=== PATIENT | female | born 1975 | race American Indian/Alaskan Native ===

== ENCOUNTER 2016-11-05 15:38 | Outpatient (CLI) | payer OTHER ==
--- NOTE | 2016-11-05 16:16 | Cat Scan Report ---
CTA chest: History: Elevated d-dimer. Findings: No evidence of aortic aneurysm or pulmonary embolism. No pleural or pericardial effusion. No mediastinal mass or adenopathy. Normal lung parenchyma. No discrete nodularity or consolidation. Impression: Essentially negative CTA chest.
== END 2016-11-05 15:39 | disposition home or self-care (01) ==
LOC: CT 15:38
PROVIDERS: ATTEND Internal Medicine Cardiovascular Disease
DX: I26.99 Other pulmonary embolism without acute cor pulmonale (principal); R06.00 Dyspnea, unspecified
CPT/HCPCS: 71275; Q9967

== ENCOUNTER 2017-02-06 11:18 | Outpatient (CLI) | payer OTHER ==
[2017-02-06 12:20] LABS: Anion Gap 14 mmol/L; BUN/Creatinine Ratio 15.71; Blood Urea Nitrogen 11 mg/dL (7-17); Calcium 8.7 mg/dL (8.4-10.2); Carbon Dioxide 29 mmol/L (22-30); Chloride 101.1 mmol/L (98-107); Glucose 89 mg/dL (65-100); Potassium 3.6 mmol/L (3.6-5.0); Sodium 140 mmol/L (137-145)
== END 2017-02-06 11:19 | disposition home or self-care (01) ==
LOC: LAB 11:18
PROVIDERS: ATTEND Internal Medicine Cardiovascular Disease
DX: E78.4 Other hyperlipidemia (principal)
CPT/HCPCS: 36415; 80048

== ENCOUNTER 2017-12-15 03:20 | Inpatient (IN) | payer OTHER ==
[2017-12-15 03:54] LABS: Basophils # (Auto) 0.1 K/mm3 (0.0-0.1); Basophils % (Auto) 0.8 % (0.0-1.8); Eosinophils # (Auto) 0.2 K/mm3 (0.0-0.4); Eosinophils % (Auto) 2.7 % (0.0-4.3); Hematocrit 41.7 % (30.3-42.9); Hemoglobin 13.3 gm/dl (10.1-14.3); Lymphocytes # (Auto) 2.8 K/mm3 (1.2-5.4); Lymphocytes % (Auto) 38.7 % (13.4-35.0); Mean Corpuscular HGB Conc 32 % (30-34); Mean Corpuscular Hemoglobin 28 pg (28-32); Mean Corpuscular Volume 87 fl (79-97); Monocytes # (Auto) 0.5 K/mm3 (0.0-0.8); Monocytes % (Auto) 7.6 % (0.0-7.3); Platelet Count 318 K/mm3 (140-440); Red Blood Count 4.79 M/mm3 (3.65-5.03); Red Cell Distribution Width 14.5 % (13.2-15.2)
--- NOTE | 2017-12-15 04:11 | XRay Report ---
FINAL REPORT EXAM: XR CHEST ROUTINE 2V HISTORY: Shortness of breath TECHNIQUE: PA and lateral chest radiographs PRIORS: None. FINDINGS: No mediastinal shift. Cardiac silhouette is not enlarged. Posterior right lower lung opacity. No pneumothorax, effusion, or acute skeletal finding. IMPRESSION: Posterior right lower lung airspace disease.
[2017-12-15 05:06] LABS: BUN/Creatinine Ratio 18; Blood Urea Nitrogen 14 mg/dL (7-17); Calcium 8.8 mg/dL (8.4-10.2); Hemolysis Index 5
[2017-12-15 08:33] LABS: Alanine Aminotransferase 10 units/L (7-56); Albumin 4.1 g/dL (3.9-5); Bilirubin,Direct < 0.2 mg/dL (0-0.2)
[2017-12-15] MEDS ORDERED: LASIX IV ONE ×2 (08:46→08:48)
[2017-12-15] MEDS ORDERED: TESSALON PERLES PO ONE (08:47)
[2017-12-15] MEDS ORDERED: ZOFRAN IV ONE (08:47)
[2017-12-15] MEDS ORDERED: MORPHINE IV ONE (08:47)
[2017-12-15] MEDS ORDERED: K-DUR PO ONE (08:48)
[2017-12-15] MEDS ORDERED: ASPIRIN PO ONE (08:51)
--- NOTE | 2017-12-15 08:55 | Emergency Department Report ---
ED Shortness of Breath HPI - General Chief Complaint: Dyspnea/Respdistress Stated Complaint: CHEST TIGHNESS,SOB Time Seen by Provider: 12/15/17 08:14 Source: patient Mode of arrival: Ambulatory Limitations: No Limitations - History of Present Illness Initial Comments: 42-year-old female with a past medical history of lupus, CHF with last EF of 35 % in past, and obesity presents to the hospital complains of shortness of breath since yesterday 9 AM. Symptoms started rest sitting at work. Notices worsening shortness of breath with exertion, orthopnea, and PND. Some improvement with rest and sleeping sitting straight up in the bed. Patient feels like her abdomen is swollen but denies any edema or calf tenderness. Dry cough since yesterday reported without fever. Patient developed anterior upper chest wall pain since 1 AM. Pain is moderate, constant, worse with palpation and coughing. Patient reports that she had an outpatient echocardiogram performed 1 month ago by her dynamometer tester is Dr. Farr but she does not know the results. She ran out of her Bumex 2 days ago but is taking her carvedilol, potassium, and aspirin 81 mg. - Related Data Allergies Allergy/AdvReac Type Severity Reaction Status Date / Time codeine AdvReac Anaphylaxis Verified 12/15/17 08:49 ED Review of Systems ROS: Stated complaint: CHEST TIGHNESS,SOB Other details as noted in HPI Comment: All other systems reviewed and negative Other: Constitutional: No fevers chills Eyes: No eye pain visual changes ENT: No ear pain or throat pain Neck: Denies pain Respiratory: As per HPI Cardiovascular: Denies chest pain, palpitations, syncope GI: Denies abdominal pain, nausea, vomiting, diarrhea : Denies dysuria Musculoskeletal: Denies back pain Skin: Denies rash, lesions, erythema Neurologic: Denies headache, numbness, weakness Psychiatric: Denies suicidal ideation, hallucinations ED Past Medical Hx - Past Medical History Previous Medical History?: Yes Hx Congestive Heart Failure: Yes Hx Arthritis: Yes Additional medical history: lupus - Surgical History Past Surgical History?: Yes Additional Surgical History: hysterectomy 2014. tubal ligation 1998 - Social History Smoking Status: Never Smoker Substance Use Type: None ED Physical Exam - General Limitations: No Limitations - Other Other exam information: General: No limitations, patient is alert in no acute distress Head exam: Atraumatic, normocephalic Eyes exam: Normal appearance, pupils equal reactive to light, extraocular movements intact ENT: Moist mucous membrane, normal oropharynx Neck exam: Normal inspection, full range of motion, no meningismus nontender Respiratory exam: Diminished breath sounds right base, no rales, mild tachypnea , no accessory muscle use CV: Regular rate and rhythm, mild tenderness to palpation to anterior upper chest wall Abdomen: Soft, nondistended, and nontender, with normal bowel sounds, no rebound, or guarding Extremity: Full range of motion normal inspection no deformity, no calf tenderness or edema Back: Normal Inspection, full range of motion, no tenderness Neurologic: Alert, oriented x3, cranial nerves intact, no motor or sensory deficit Psychiatric: normal affect, normal mood Skin: Warm, dry, intact ED Course Vital Signs 12/15/17 12/15/17 12/15/17 03:36 05:29 05:49 Temperature 97.9 F Pulse Rate 108 H 105 H Respiratory 22 23 18 Rate Blood Pressure 136/90 153/82 Blood Pressure [Left] O2 Sat by Pulse 97 94 97 Oximetry 12/15/17 08:07 Temperature Pulse Rate 94 H Respiratory 16 Rate Blood Pressure Blood Pressure 138/94 [Left] O2 Sat by Pulse 93 Oximetry - Consultations Consultation #1: 12/15/17 08:53 case d/w Inocencia Chow with [facility]. Will consult ED Medical Decision Making - Lab Data Result diagrams: 12/15/17 03:43 12/15/17 03:43 Lab Results 12/15/17 12/15/17 12/15/17 Range/Units 03:43 03:43 03:43 WBC 7.1 (4.5-11.0) K/mm3 RBC 4.79 (3.65-5.03) M/mm3 Hgb 13.3 (10.1-14.3) gm/dl Hct 41.7 (30.3-42.9) % MCV 87 (79-97) fl MCH 28 (28-32) pg MCHC 32 (30-34) % RDW 14.5 (13.2-15.2) % Plt Count 318 (140-440) K/mm3 Lymph % (Auto) 38.7 H (13.4-35.0) % [place] % (Auto) 7.6 H (0.0-7.3) % Eos % (Auto) 2.7 (0.0-4.3) % Baso % (Auto) 0.8 (0.0-1.8) % Lymph # 2.8 (1.2-5.4) K/mm3 [place] # 0.5 (0.0-0.8) K/mm3 Eos # 0.2 (0.0-0.4) K/mm3 Baso # 0.1 (0.0-0.1) K/mm3 Seg Neutrophils % 50.2 (40.0-70.0) % Seg Neutrophils # 3.6 (1.8-7.7) K/mm3 Sodium 139 (137-145) mmol/L Potassium 3.3 L (3.6-5.0) mmol/L Chloride 100.3 (98-107) mmol/L Carbon Dioxide 25 (22-30) mmol/L Anion Gap 17 mmol/L BUN 14 (7-17) mg/dL Creatinine 0.8 (0.7-1.2) mg/dL Estimated GFR > 60 ml/min BUN/Creatinine Ratio 18 % Glucose 90 (65-100) mg/dL Calcium 8.8 (8.4-10.2) mg/dL Total Bilirubin 0.40 (0.1-1.2) mg/dL Direct Bilirubin < 0.2 (0-0.2) mg/dL AST 12 (5-40) units/L ALT 10 (7-56) units/L Alkaline Phosphatase 51 (35-129) units/L Troponin T (0.00-0.029) ng/mL NT-Pro-B Natriuret Pep 1418 H (0-450) pg/mL Total Protein 6.8 (6.3-8.2) g/dL Albumin 4.1 (3.9-5) g/dL Albumin/Globulin Ratio 1.5 % 12/15/17 Range/Units 08:55 WBC (4.5-11.0) K/mm3 RBC (3.65-5.03) M/mm3 Hgb (10.1-14.3) gm/dl Hct (30.3-42.9) % MCV (79-97) fl MCH (28-32) pg MCHC (30-34) % RDW (13.2-15.2) % Plt Count (140-440) K/mm3 Lymph % (Auto) (13.4-35.0) % [place] % (Auto) (0.0-7.3) % Eos % (Auto) (0.0-4.3) % Baso % (Auto) (0.0-1.8) % Lymph # (1.2-5.4) K/mm3 [place] # (0.0-0.8) K/mm3 Eos # (0.0-0.4) K/mm3 Baso # (0.0-0.1) K/mm3 Seg Neutrophils % (40.0-70.0) % Seg Neutrophils # (1.8-7.7) K/mm3 Sodium (137-145) mmol/L Potassium (3.6-5.0) mmol/L Chloride (98-107) mmol/L Carbon Dioxide (22-30) mmol/L Anion Gap mmol/L BUN (7-17) mg/dL Creatinine (0.7-1.2) mg/dL Estimated GFR ml/min BUN/Creatinine Ratio % Glucose (65-100) mg/dL Calcium (8.4-10.2) mg/dL Total Bilirubin (0.1-1.2) mg/dL Direct Bilirubin (0-0.2) mg/dL AST (5-40) units/L ALT (7-56) units/L Alkaline Phosphatase (35-129) units/L Troponin T < 0.010 (0.00-0.029) ng/mL NT-Pro-B Natriuret Pep (0-450) pg/mL Total Protein (6.3-8.2) g/dL Albumin (3.9-5) g/dL Albumin/Globulin Ratio % - EKG Data -: EKG Interpreted by Tx EKG shows normal: sinus rhythm, axis (qrs -33), QRS complexes (87), ST-T waves ( no stemi/t inv) Rate: tachycardia (112) - Radiology Data Radiology results: report reviewed Read by radiologist Chest x-ray: Posterior right lower lung airspace disease - Medical Decision Making Shortness of breath/CHF exacerbation Elevated BNP Noncompliance of Bumex 2 days Right lower lobe opacity likely fluid given clinical picture Positive cough but no fever, leukocytosis to indicate infiltrate Lasix 60 mg IV given Staying Machine Operator consulted and came to ED to evaluate patient Chest pain Reproducible with palpation No STEMI Aspirin given Initial trop neg Hypokalemia By mouth potassium Hospitalist informed informed for admission - Differential Diagnosis CHF, PE, unstable angina, PA, bronchitis, pneumonia Critical Care Time: No Critical care attestation.: If time is entered above; I have spent that time in minutes in the direct care of this critically ill patient, excluding procedure time. ED Disposition Clinical Impression: CHF exacerbation, Chest wall pain, Hypokalemia, Lupus, Noncompliance with medication regimen Disposition: OP ADMIT IP TO THIS HOSP Is pt being admited?: Yes Does the pt Need Aspirin: Yes Condition: Stable Instructions: Chest Pain (ED) Time of Disposition: 08:53 (Dr Martin/hosp)
--- NOTE | 2017-12-15 09:35 | History and Physical Report ---
History of Present Illness Date of examination: 12/15/17 Date of admission: 12/15/17 Chief complaint: sob History of present illness: 42-year-old female with a past medical history of lupus, CHF with last EF of 35 % in past, and obesity presents to the hospital complains of shortness of breath since yesterday 9 AM. Symptoms started rest sitting at work. Notices worsening shortness of breath with exertion, orthopnea, and PND. Pt. reports little LE edema. She reports keeping legs elecvated. Patient feels like her abdomen is swollen but denies any edema or calf tenderness. She reports dry cough since yesterday but no fever. Patient developed anterior upper chest wall pain since 1 AM. Pain is moderate, constant, worse with palpation and coughing. Patient reports that she had an outpatient echocardiogram performed 1 month ago by her forensic toxicologist is Dr. Farr but she does not know the results. She ran out of her Bumex 2 days ago but is taking her carvedilol, potassium, and aspirin 81 mg. Past History Past Medical History: heart failure, other (chf, obesity, lupus) Past Surgical History: No surgical history Social history: no significant social history Family history: no significant family history Medications and Allergies Allergies Allergy/AdvReac Type Severity Reaction Status Date / Time codeine AdvReac Anaphylaxis Verified 12/15/17 08:49 Review of Systems All systems: negative Exam - Constitutional Vitals: Temp Pulse Resp BP Pulse Ox 97.9 F 94 H 16 138/94 93 12/15/17 03:36 12/15/17 08:07 12/15/17 08:07 12/15/17 08:07 12/15/17 08:07 General appearance: Present: no acute distress, well-nourished - EENT Eyes: Present: PERRL ENT: hearing intact, clear oral mucosa - Neck Neck: Present: supple, normal ROM - Respiratory Respiratory effort: normal Respiratory: bilateral: rales - Cardiovascular Heart Sounds: Present: S1 & S2. Absent: rub, click - Extremities Extremities: pulses symmetrical, No edema Peripheral Pulses: within normal limits - Abdominal General gastrointestinal: Present: soft, non-tender, non-distended, normal bowel sounds Female genitourinary: Present: normal - Integumentary Integumentary: Present: clear, warm, dry - Musculoskeletal Musculoskeletal: gait normal, strength equal bilaterally - Psychiatric Psychiatric: appropriate mood/affect, intact judgment & insight - Neurologic Neurologic: CNII-XII intact, moves all extremities Results - Labs CBC & Chem 7: 12/15/17 03:43 12/15/17 03:43 Labs: Laboratory Last Values WBC 7.1 K/mm3 (4.5-11.0) 12/15/17 03:43 RBC 4.79 M/mm3 (3.65-5.03) 12/15/17 03:43 Hgb 13.3 gm/dl (10.1-14.3) 12/15/17 03:43 Hct 41.7 % (30.3-42.9) 12/15/17 03:43 MCV 87 fl (79-97) 12/15/17 03:43 MCH 28 pg (28-32) 12/15/17 03:43 MCHC 32 % (30-34) 12/15/17 03:43 RDW 14.5 % (13.2-15.2) 12/15/17 03:43 Plt Count 318 K/mm3 (140-440) 12/15/17 03:43 Lymph % (Auto) 38.7 % (13.4-35.0) H 12/15/17 03:43 [place] % (Auto) 7.6 % (0.0-7.3) H 12/15/17 03:43 Eos % (Auto) 2.7 % (0.0-4.3) 12/15/17 03:43 Baso % (Auto) 0.8 % (0.0-1.8) 12/15/17 03:43 Lymph # 2.8 K/mm3 (1.2-5.4) 12/15/17 03:43 [place] # 0.5 K/mm3 (0.0-0.8) 12/15/17 03:43 Eos # 0.2 K/mm3 (0.0-0.4) 12/15/17 03:43 Baso # 0.1 K/mm3 (0.0-0.1) 12/15/17 03:43 Seg Neutrophils % 50.2 % (40.0-70.0) 12/15/17 03:43 Seg Neutrophils # 3.6 K/mm3 (1.8-7.7) 12/15/17 03:43 Sodium 139 mmol/L (137-145) 12/15/17 03:43 Potassium 3.3 mmol/L (3.6-5.0) L 12/15/17 03:43 Chloride 100.3 mmol/L (98-107) 12/15/17 03:43 Carbon Dioxide 25 mmol/L (22-30) 12/15/17 03:43 Anion Gap 17 mmol/L 12/15/17 03:43 BUN 14 mg/dL (7-17) 12/15/17 03:43 Creatinine 0.8 mg/dL (0.7-1.2) 12/15/17 03:43 Estimated GFR > 60 ml/min 12/15/17 03:43 BUN/Creatinine Ratio 18 % 12/15/17 03:43 Glucose 90 mg/dL (65-100) 12/15/17 03:43 Calcium 8.8 mg/dL (8.4-10.2) 12/15/17 03:43 Total Bilirubin 0.40 mg/dL (0.1-1.2) 12/15/17 03:43 Direct Bilirubin < 0.2 mg/dL (0-0.2) 12/15/17 03:43 AST 12 units/L (5-40) 12/15/17 03:43 ALT 10 units/L (7-56) 12/15/17 03:43 Alkaline Phosphatase 51 units/L (35-129) 12/15/17 03:43 Troponin T < 0.010 ng/mL (0.00-0.029) 12/15/17 08:55 NT-Pro-B Natriuret Pep 1418 pg/mL (0-450) H 12/15/17 03:43 Total Protein 6.8 g/dL (6.3-8.2) 12/15/17 03:43 Albumin 4.1 g/dL (3.9-5) 12/15/17 03:43 Albumin/Globulin Ratio 1.5 % 12/15/17 03:43 Assessment and Plan Assessment and plan: Acute hypoxemic resp failure. Cont. O2 for supportive care. Acute systolic heart failure exac. Cardiology consulted. Cont. diuresis. SLE. Supportive care. Resume home meds. Medical noncompliance. Pt. counseled. Costochondritis. Reproducible chest wall pain with palpation
[2017-12-15] MEDS ORDERED: ZOFRAN IV PRN (13:17)
--- NOTE | 2017-12-15 13:46 | Consultation ---
History of Present Illness Consult date: 12/15/17 Requesting physician: ULYSSES ELLIOTT Consult reason: congestive heart failure History of present illness: The pt is a 42 YO female with a past medical history significant for chronic systolic heart failure, dilated NICMP, lupus, HLP, obesity, medication noncompliance. She is followed in our office by Dr. Corcoran. She presented with c/o chest pain and progressively worsening SOB, orthopnea and PND for several days prior to arrival. She describes her chest pain as a nonexertional, nonradiating, intermittent precordial pain which is aggravated by palpation. She reports that she ran out of her Bumex and has not taken any for 2 days. She also reports that she was treated for pneumonia in October of this year. She denies any palpitations, n/v, diaphoresis, dizziness or syncope. Echo done 11/05/2017 showed EF 15-20%, mild MR, mild TR, mild AR, LV mod dilated , impaired relaxation, RV size and systolic function normal. LHC 08/2016 showed EF 35-40%, normal coronary anatomy. Past History Past Medical History: heart failure (systolic), hyperlipidemia, other (obesity, lupus) Past Surgical History: No surgical history Social history: no significant social history Family history: no significant family history Medications and Allergies Allergies Allergy/AdvReac Type Severity Reaction Status Date / Time codeine AdvReac Anaphylaxis Verified 12/15/17 08:49 Home Medications Medication Instructions Recorded Confirmed Last Taken Type Aspirin 81 mg PO DAILY 12/15/17 12/15/17 Unknown History Bumetanide 2 mg tab 2 mg PO BID 12/15/17 12/15/17 Unknown History Carvedilol 3.125 mg PO BID 12/15/17 12/15/17 Unknown History Active Meds: Active Medications Acetaminophen (Tylenol) 650 mg PO Q4H PRN PRN Reason: Pain MILD(1-3)/Fever >100.5/JE[facility]TISTE Enoxaparin Sodium (Lovenox) 40 mg SUB-Q QDAY BRANDT Furosemide (Lasix) 40 mg IV QDAY BRANDT Ondansetron HCl (Zofran) 4 mg IV Q8H PRN PRN Reason: Nausea And Vomiting Review of Systems Constitutional: no fever, no chills, no sweats Ears, nose, mouth and throat: no ear pain, no nose pain Cardiovascular: chest pain, orthopnea, shortness of breath, dyspnea on exertion , paroxysmal nocturnal dyspnea, leg edema (trace BLE), decreased exercise tolerance, no palpitations, no rapid/irregular heart beat, no syncope, no lightheadedness Respiratory: cough, no cough with sputum, no congestion, no wheezing, no pain on inspiration Gastrointestinal: no abdominal pain, no nausea, no vomiting, no diarrhea, no constipation, no change in bowel habits Genitourinary Female: no pelvic pain, no flank pain, no dysuria, no urinary frequency, no urgency Musculoskeletal: no neck stiffness, no neck pain, no shooting arm pain, no arm numbness/tingling, no low back pain, no shooting leg pain, no leg numbness/ tingling, no redness of joints Integumentary: no rash, no pruritis, no redness, no sores, no wounds Neurological: no head injury, no paralysis, no weakness, no parathesias, no numbness, no tingling, no seizures, no syncope Psychiatric: no anxiety Endocrine: no cold intolerance, no heat intolerance Hematologic/Lymphatic: no easy bruising, no easy bleeding, no lymphadenopathy Allergic/Immunologic: no urticaria, no wheezing, no persistent infections Physical Examination Vital Signs Temp Pulse Resp BP Pulse Ox 97.9 F 108 H 22 136/90 97 12/15/17 03:36 12/15/17 03:36 12/15/17 03:36 12/15/17 03:36 12/15/17 03:36 General appearance: no acute distress HEENT: Positive: PERRL, Normocephaly, Mucus Membranes Moist Neck: Positive: neck supple, trachea midline Cardiac: Positive: Reg Rate and Rhythm, S1/S2 Lungs: Positive: Decreased Breath Sounds, Rales (right lower) Neuro: Positive: Grossly Intact, Cranial Nerve 2-12 Intact Abdomen: Positive: Soft. Negative: Tender Skin: Positive: Clear. Negative: Rash, Wound Musculoskeletal: No Pain, Normal Range of Motion Extremities: Present: edema (trace BLE) Results 12/15/17 03:43 12/15/17 03:43 Cardiac Enzymes 12/15/17 Range/Units 03:43 AST 12 (5-40) units/L CBC 12/15/17 Range/Units 03:43 WBC 7.1 (4.5-11.0) K/mm3 RBC 4.79 (3.65-5.03) M/mm3 Hgb 13.3 (10.1-14.3) gm/dl Hct 41.7 (30.3-42.9) % Plt Count 318 (140-440) K/mm3 Lymph # 2.8 (1.2-5.4) K/mm3 [place] # 0.5 (0.0-0.8) K/mm3 Eos # 0.2 (0.0-0.4) K/mm3 Baso # 0.1 (0.0-0.1) K/mm3 Comprehensive Metabolic Panel 12/15/17 12/15/17 Range/Units 03:43 03:43 Sodium 139 (137-145) mmol/L Potassium 3.3 L (3.6-5.0) mmol/L Chloride 100.3 (98-107) mmol/L Carbon Dioxide 25 (22-30) mmol/L BUN 14 (7-17) mg/dL Creatinine 0.8 (0.7-1.2) mg/dL Glucose 90 (65-100) mg/dL Calcium 8.8 (8.4-10.2) mg/dL Direct Bilirubin < 0.2 (0-0.2) mg/dL AST 12 (5-40) units/L ALT 10 (7-56) units/L Alkaline Phosphatase 51 (35-129) units/L Total Protein 6.8 (6.3-8.2) g/dL Albumin 4.1 (3.9-5) g/dL - Imaging and Cardiology Echo: report reviewed (11/05/2017 showed EF 15-20%, mild MR, mild TR, mild AR, LV mod dilated, impaired relaxation, RV size and systolic function normal. ) Cardiac cath: report reviewed (08/2016 showed EF 35-40%, normal coronary anatomy. ) EKG: report reviewed, image reviewed EKG interpretations - Telemetry EKG Rhythm: Sinus Rhythm - EKG Sinus rhythms and dysrhythmias: sinus rhythm Assessment and Plan Assessment: Acute on chronic systolic heart failure Dilated NICMP - EF 15-20% Lupus HLP Obesity Medication noncompliance Plan: Resume home Coreg and lisinopril. Agree with IV diuretics. Replete K+. Repeat BMP in AM. No indication for repeat echo at this time given recent echo in our office 2017. Echo results reviewed with pt and cardiac defibrillator recommended. Pt wishes to consider LifeVest placement overnight. Will reassess in AM. Assessment and plan reviewed with pt at bedside. The patient has been seen in conjunction with Dr. Almonte who agrees with the assessment and plan of care.
[2017-12-15] MEDS: TYLENOL PO PRN ×2 (16:54→21:15)
[2017-12-15] MEDS ORDERED: ATIVAN IV ONE (21:04)
[2017-12-15] MEDS: COREG PO SCH (21:15)
[2017-12-16 07:09] LABS: BUN/Creatinine Ratio 17; Blood Urea Nitrogen 15 mg/dL (7-17); Calcium 8.8 mg/dL (8.4-10.2); Hemolysis Index 13
--- NOTE | 2017-12-16 10:52 | Progress Note ---
Assessment and Plan Assessment and plan: Acute hypoxemic resp failure. Cont. O2 for supportive care. Acute on chronic systolic heart failure exac. Dilated NICMP. ECHO on 11/05/17 revealed EF 15-20%, mild MR, mild TR, mild AR, LV mod dilated, impaired relaxation, RV size and systolic function normal. Cont. Coreg, lisinopril and IV diuresis SLE. Supportive care. Resume home meds. hypokalemia. Replete K hyperlipidemia. Medical noncompliance. Pt. counseled. Obesity Costochondritis. Reproducible chest wall pain with palpation History Interval history: no new issues Hospitalist Physical - Constitutional Vitals: Temp Pulse Resp BP Pulse Ox 98.0 F 105 H 20 142/89 99 12/16/17 09:04 12/16/17 09:04 12/16/17 09:04 12/16/17 09:04 12/16/17 09:04 General appearance: Present: no acute distress - EENT Eyes: Present: PERRL, EOM intact ENT: hearing intact, clear oral mucosa, dentition normal - Neck Neck: Present: supple, normal ROM - Respiratory Respiratory effort: normal Respiratory: bilateral: diminished, rales - Cardiovascular Rhythm: regular Heart Sounds: Present: S1 & S2. Absent: gallop, rub - Extremities Extremities: no ischemia, No edema, Full ROM - Abdominal General gastrointestinal: soft, non-tender, non-distended, normal bowel sounds - Integumentary Integumentary: Present: clear, warm, dry - Neurologic Neurologic: CNII-XII intact, moves all extremities Results - Labs CBC & Chem 7: 12/15/17 03:43 12/16/17 06:11 Labs: Laboratory Last Values WBC 7.1 K/mm3 (4.5-11.0) 12/15/17 03:43 RBC 4.79 M/mm3 (3.65-5.03) 12/15/17 03:43 Hgb 13.3 gm/dl (10.1-14.3) 12/15/17 03:43 Hct 41.7 % (30.3-42.9) 12/15/17 03:43 MCV 87 fl (79-97) 12/15/17 03:43 MCH 28 pg (28-32) 12/15/17 03:43 MCHC 32 % (30-34) 12/15/17 03:43 RDW 14.5 % (13.2-15.2) 12/15/17 03:43 Plt Count 318 K/mm3 (140-440) 12/15/17 03:43 Lymph % (Auto) 38.7 % (13.4-35.0) H 12/15/17 03:43 [place] % (Auto) 7.6 % (0.0-7.3) H 12/15/17 03:43 Eos % (Auto) 2.7 % (0.0-4.3) 12/15/17 03:43 Baso % (Auto) 0.8 % (0.0-1.8) 12/15/17 03:43 Lymph # 2.8 K/mm3 (1.2-5.4) 12/15/17 03:43 [place] # 0.5 K/mm3 (0.0-0.8) 12/15/17 03:43 Eos # 0.2 K/mm3 (0.0-0.4) 12/15/17 03:43 Baso # 0.1 K/mm3 (0.0-0.1) 12/15/17 03:43 Seg Neutrophils % 50.2 % (40.0-70.0) 12/15/17 03:43 Seg Neutrophils # 3.6 K/mm3 (1.8-7.7) 12/15/17 03:43 Sodium 137 mmol/L (137-145) 12/16/17 06:11 Potassium 3.2 mmol/L (3.6-5.0) L 12/16/17 06:11 Chloride 98.3 mmol/L (98-107) 12/16/17 06:11 Carbon Dioxide 25 mmol/L (22-30) 12/16/17 06:11 Anion Gap 17 mmol/L 12/16/17 06:11 BUN 15 mg/dL (7-17) 12/16/17 06:11 Creatinine 0.9 mg/dL (0.7-1.2) 12/16/17 06:11 Estimated GFR > 60 ml/min 12/16/17 06:11 BUN/Creatinine Ratio 17 % 12/16/17 06:11 Glucose 95 mg/dL (65-100) 12/16/17 06:11 Calcium 8.8 mg/dL (8.4-10.2) 12/16/17 06:11 Total Bilirubin 0.40 mg/dL (0.1-1.2) 12/15/17 03:43 Direct Bilirubin < 0.2 mg/dL (0-0.2) 12/15/17 03:43 AST 12 units/L (5-40) 12/15/17 03:43 ALT 10 units/L (7-56) 12/15/17 03:43 Alkaline Phosphatase 51 units/L (35-129) 12/15/17 03:43 Troponin T < 0.010 ng/mL (0.00-0.029) 12/15/17 08:55 NT-Pro-B Natriuret Pep 1418 pg/mL (0-450) H 12/15/17 03:43 Total Protein 6.8 g/dL (6.3-8.2) 12/15/17 03:43 Albumin 4.1 g/dL (3.9-5) 12/15/17 03:43 Albumin/Globulin Ratio 1.5 % 12/15/17 03:43
[2017-12-16] MEDS: ZESTRIL PO SCH (10:57)
[2017-12-16] MEDS: COREG PO SCH ×3 (10:58→21:49)
[2017-12-16] MEDS: LASIX IV SCH (10:58)
[2017-12-16] MEDS: LOVENOX SUB-Q SCH (10:58)
[2017-12-16] MEDS ORDERED: K-DUR PO NR (11:30)
--- NOTE | 2017-12-16 12:10 | Progress Note ---
Assessment and Plan Assessment: Acute on chronic systolic heart failure Dilated NICMP - EF 15-20% Hypokalemia Lupus HLP Obesity Medication noncompliance Plan: Increase coreg. Cont all other present cardiac management. Replete K+. Repeat BMP in AM. Pt wishes proceed with LifeVest placement. LifeVest ordered. Assessment and plan reviewed with pt at bedside. The patient has been seen in conjunction with Dr. Almonte who agrees with the assessment and plan of care. Subjective Date of service: 12/16/17 Principal diagnosis: HF Interval history: pt resting in bed, states she is feeling a little better. Objective Last Vital Signs Temp 98.0 F 12/16/17 09:04 Pulse 105 H 12/16/17 10:58 Resp 20 12/16/17 09:04 BP 142/89 12/16/17 10:57 Pulse Ox 99 12/16/17 09:04 - Physical Examination HEENT: Positive: PERRL, Normocephaly, Mucus Membranes Moist Neck: Positive: neck supple, trachea midline Cardiac: Positive: Reg Rate and Rhythm, S1/S2 Lungs: Positive: Decreased Breath Sounds Neuro: Positive: Grossly Intact, Cranial Nerve 2-12 Intact Abdomen: Positive: Soft. Negative: Tender Skin: Positive: Clear. Negative: Rash, Wound Musculoskeletal: No Pain, Normal Range of Motion Extremities: Present: edema (trace BLE) - Labs and Meds Comprehensive Metabolic Panel 12/16/17 Range/Units 06:11 Sodium 137 (137-145) mmol/L Potassium 3.2 L (3.6-5.0) mmol/L Chloride 98.3 (98-107) mmol/L Carbon Dioxide 25 (22-30) mmol/L BUN 15 (7-17) mg/dL Creatinine 0.9 (0.7-1.2) mg/dL Glucose 95 (65-100) mg/dL Calcium 8.8 (8.4-10.2) mg/dL - Imaging and Cardiology EKG: report reviewed, image reviewed Echo: report reviewed (11/05/2017 showed EF 15-20%, mild MR, mild TR, mild AR, LV mod dilated, impaired relaxation, RV size and systolic function normal. ) Cardiac cath: report reviewed (08/2016 showed EF 35-40%, normal coronary anatomy. ) - EKG Sinus rhythms and dysrhythmias: sinus rhythm
[2017-12-16] MEDS: TYLENOL PO PRN (19:57)
[2017-12-16] MEDS ORDERED: AMBIEN PO ONE (23:00)
[2017-12-17 06:55] LABS: Basophils # (Auto) 0.1 K/mm3 (0.0-0.1); Eosinophils # (Auto) 0.2 K/mm3 (0.0-0.4); Eosinophils % (Auto) 4.1 % (0.0-4.3); Hematocrit 38.9 % (30.3-42.9); Hemoglobin 12.6 gm/dl (10.1-14.3); Lymphocytes # (Auto) 2.2 K/mm3 (1.2-5.4); Lymphocytes % (Auto) 39.6 % (13.4-35.0); Mean Corpuscular HGB Conc 32 % (30-34); Mean Corpuscular Hemoglobin 28 pg (28-32); Mean Corpuscular Volume 87 fl (79-97); Monocytes # (Auto) 0.6 K/mm3 (0.0-0.8); Monocytes % (Auto) 10.9 % (0.0-7.3); Platelet Count 270 K/mm3 (140-440); Red Blood Count 4.46 M/mm3 (3.65-5.03)
[2017-12-17 07:03] LABS: BUN/Creatinine Ratio 21; Blood Urea Nitrogen 17 mg/dL (7-17); Calcium 8.4 mg/dL (8.4-10.2); Hemolysis Index 10
[2017-12-17] MEDS: COREG PO SCH ×2 (10:28→21:20)
[2017-12-17] MEDS: LOVENOX SUB-Q SCH (10:29)
[2017-12-17] MEDS: LASIX IV SCH (10:29)
[2017-12-17] MEDS: ZESTRIL PO SCH (10:30)
--- NOTE | 2017-12-17 11:11 | Progress Note ---
Assessment and Plan Assessment and plan: Acute hypoxemic resp failure. Cont. O2 for supportive care. Acute on chronic systolic heart failure exac. Dilated NICMP. ECHO on 11/05/17 revealed EF 15-20%, mild MR, mild TR, mild AR, LV mod dilated, impaired relaxation, RV size and systolic function normal. Cont. Coreg which was increased by cardiology, lisinopril and IV diuresis Dilated NICMP. LifeVest placement SLE. Supportive care. Resume home meds. hypokalemia. Replete K hyperlipidemia. Medical noncompliance. Pt. counseled. Obesity Costochondritis. Reproducible chest wall pain with palpation History Interval history: no new issues Hospitalist Physical - Constitutional Vitals: Temp Pulse Resp BP Pulse Ox 98.4 F 94 H 18 123/66 99 12/17/17 07:30 12/17/17 07:30 12/17/17 07:30 12/17/17 07:30 12/17/17 07:30 General appearance: Present: no acute distress - EENT Eyes: Present: PERRL, EOM intact ENT: hearing intact, clear oral mucosa, dentition normal - Neck Neck: Present: supple, normal ROM - Respiratory Respiratory effort: normal Respiratory: bilateral: CTA - Cardiovascular Rhythm: regular Heart Sounds: Present: S1 & S2. Absent: gallop, rub - Extremities Extremities: no ischemia, No edema, Full ROM - Abdominal General gastrointestinal: soft, non-tender, non-distended, normal bowel sounds - Integumentary Integumentary: Present: clear, warm, dry - Neurologic Neurologic: CNII-XII intact, moves all extremities Results - Labs CBC & Chem 7: 12/17/17 05:38 12/17/17 05:38 Labs: Laboratory Last Values WBC 5.6 K/mm3 (4.5-11.0) 12/17/17 05:38 RBC 4.46 M/mm3 (3.65-5.03) 12/17/17 05:38 Hgb 12.6 gm/dl (10.1-14.3) 12/17/17 05:38 Hct 38.9 % (30.3-42.9) 12/17/17 05:38 MCV 87 fl (79-97) 12/17/17 05:38 MCH 28 pg (28-32) 12/17/17 05:38 MCHC 32 % (30-34) 12/17/17 05:38 RDW 15.0 % (13.2-15.2) 12/17/17 05:38 Plt Count 270 K/mm3 (140-440) 12/17/17 05:38 Lymph % (Auto) 39.6 % (13.4-35.0) H 12/17/17 05:38 [place] % (Auto) 10.9 % (0.0-7.3) H 12/17/17 05:38 Eos % (Auto) 4.1 % (0.0-4.3) 12/17/17 05:38 Baso % (Auto) 1.0 % (0.0-1.8) 12/17/17 05:38 Lymph # 2.2 K/mm3 (1.2-5.4) 12/17/17 05:38 [place] # 0.6 K/mm3 (0.0-0.8) 12/17/17 05:38 Eos # 0.2 K/mm3 (0.0-0.4) 12/17/17 05:38 Baso # 0.1 K/mm3 (0.0-0.1) 12/17/17 05:38 Seg Neutrophils % 44.4 % (40.0-70.0) 12/17/17 05:38 Seg Neutrophils # 2.5 K/mm3 (1.8-7.7) 12/17/17 05:38 Sodium 140 mmol/L (137-145) 12/17/17 05:38 Potassium 3.5 mmol/L (3.6-5.0) L 12/17/17 05:38 Chloride 98.7 mmol/L (98-107) 12/17/17 05:38 Carbon Dioxide 26 mmol/L (22-30) 12/17/17 05:38 Anion Gap 19 mmol/L 12/17/17 05:38 BUN 17 mg/dL (7-17) 12/17/17 05:38 Creatinine 0.8 mg/dL (0.7-1.2) 12/17/17 05:38 Estimated GFR > 60 ml/min 12/17/17 05:38 BUN/Creatinine Ratio 21 % 12/17/17 05:38 Glucose 81 mg/dL (65-100) 12/17/17 05:38 Calcium 8.4 mg/dL (8.4-10.2) 12/17/17 05:38 Total Bilirubin 0.40 mg/dL (0.1-1.2) 12/15/17 03:43 Direct Bilirubin < 0.2 mg/dL (0-0.2) 12/15/17 03:43 AST 12 units/L (5-40) 12/15/17 03:43 ALT 10 units/L (7-56) 12/15/17 03:43 Alkaline Phosphatase 51 units/L (35-129) 12/15/17 03:43 Troponin T < 0.010 ng/mL (0.00-0.029) 12/15/17 08:55 NT-Pro-B Natriuret Pep 1418 pg/mL (0-450) H 12/15/17 03:43 Total Protein 6.8 g/dL (6.3-8.2) 12/15/17 03:43 Albumin 4.1 g/dL (3.9-5) 12/15/17 03:43 Albumin/Globulin Ratio 1.5 % 12/15/17 03:43
--- NOTE | 2017-12-17 12:10 | Progress Note ---
Assessment and Plan Assessment: Acute on chronic systolic heart failure - nearing/at euvolemia Dilated NICMP - EF 15-20% Hypokalemia Lupus HLP NSVT Obesity Medication noncompliance Plan: Continue present cardiac regimen. Repeat CXR and BMP in AM. Await LifeVest placement. Likely d/c home in AM. Assessment and plan reviewed with pt at bedside. The patient has been seen in conjunction with Dr. Almonte who agrees with the assessment and plan of care. Subjective Date of service: 12/17/17 Principal diagnosis: HF Interval history: pt resting in bed, still c/o some BRYAN. Awaiting LifeVest placement. Tele reviewed - pt in SR with a 13 beat run NSVT overnight. Objective Last Vital Signs Temp 98.4 F 12/17/17 07:30 Pulse 94 H 12/17/17 10:30 Resp 18 12/17/17 07:30 BP 123/66 12/17/17 10:28 Pulse Ox 99 12/17/17 07:30 - Physical Examination General: No Apparent Distress HEENT: Positive: PERRL, Normocephaly, Mucus Membranes Moist Neck: Positive: neck supple, trachea midline Cardiac: Positive: Reg Rate and Rhythm, S1/S2 Lungs: Positive: clear to auscultation Neuro: Positive: Grossly Intact, Cranial Nerve 2-12 Intact Abdomen: Positive: Soft. Negative: Tender Skin: Positive: Clear. Negative: Rash, Wound Musculoskeletal: No Pain, Normal Range of Motion Extremities: Present: edema (trace BLE) - Labs and Meds CBC 12/17/17 Range/Units 05:38 WBC 5.6 (4.5-11.0) K/mm3 RBC 4.46 (3.65-5.03) M/mm3 Hgb 12.6 (10.1-14.3) gm/dl Hct 38.9 (30.3-42.9) % Plt Count 270 (140-440) K/mm3 Lymph # 2.2 (1.2-5.4) K/mm3 [place] # 0.6 (0.0-0.8) K/mm3 Eos # 0.2 (0.0-0.4) K/mm3 Baso # 0.1 (0.0-0.1) K/mm3 Comprehensive Metabolic Panel 12/17/17 Range/Units 05:38 Sodium 140 (137-145) mmol/L Potassium 3.5 L (3.6-5.0) mmol/L Chloride 98.7 (98-107) mmol/L Carbon Dioxide 26 (22-30) mmol/L BUN 17 (7-17) mg/dL Creatinine 0.8 (0.7-1.2) mg/dL Glucose 81 (65-100) mg/dL Calcium 8.4 (8.4-10.2) mg/dL - Imaging and Cardiology EKG: report reviewed, image reviewed Echo: report reviewed (11/05/2017 showed EF 15-20%, mild MR, mild TR, mild AR, LV mod dilated, impaired relaxation, RV size and systolic function normal. ) Cardiac cath: report reviewed (08/2016 showed EF 35-40%, normal coronary anatomy. ) - Telemetry EKG Rhythm: Sinus Rhythm - EKG Sinus rhythms and dysrhythmias: sinus rhythm
[2017-12-17] MEDS ORDERED: AMBIEN PO ONE (23:00)
[2017-12-18 06:20] LABS: Basophils # (Auto) 0.1 K/mm3 (0.0-0.1); Basophils % (Auto) 1.1 % (0.0-1.8); Eosinophils # (Auto) 0.2 K/mm3 (0.0-0.4); Eosinophils % (Auto) 3.6 % (0.0-4.3); Hematocrit 39.7 % (30.3-42.9); Hemoglobin 12.4 gm/dl (10.1-14.3); Lymphocytes # (Auto) 2.1 K/mm3 (1.2-5.4); Lymphocytes % (Auto) 35.9 % (13.4-35.0); Mean Corpuscular HGB Conc 31 % (30-34); Mean Corpuscular Hemoglobin 28 pg (28-32); Mean Corpuscular Volume 88 fl (79-97); Monocytes # (Auto) 0.8 K/mm3 (0.0-0.8); Monocytes % (Auto) 13.3 % (0.0-7.3); Platelet Count 278 K/mm3 (140-440); Red Blood Count 4.49 M/mm3 (3.65-5.03); Red Cell Distribution Width 14.7 % (13.2-15.2)
[2017-12-18 06:34] LABS: BUN/Creatinine Ratio 17; Blood Urea Nitrogen 17 mg/dL (7-17); Calcium 8.8 mg/dL (8.4-10.2); Hemolysis Index 8
--- NOTE | 2017-12-18 09:10 | XRay Report ---
PORTABLE CHEST INDICATION: HF. COMPARISON: 12/15/2017 FINDINGS: Portable, frontal chest radiograph suggests slight clearing of bibasilar haziness, though some still persists as at the left lung base. Mild cardiomegaly again noted. No large pleural effusions or overt CHF. Intact bones. CONCLUSION: Cardiomegaly again noted with slight pulmonary vascular congestion felt improving radiographically, as described. Please correlate. Thank you for the opportunity to participate in this patient's care.
[2017-12-18] MEDS: COREG PO SCH (10:52)
[2017-12-18] MEDS: ZESTRIL PO SCH (10:52)
[2017-12-18] MEDS: LOVENOX SUB-Q SCH (10:53)
[2017-12-18] MEDS: LASIX IV SCH (10:53)
--- NOTE | 2017-12-18 11:04 | Progress Note ---
Assessment and Plan Assessment: Acute on chronic systolic heart failure - nearing/at euvolemia Dilated NICMP - EF 15-20% Hypokalemia - improved Lupus HLP NSVT Obesity Medication noncompliance Plan: Currently stable cardiac status. LifeVest in place. Pt may discharge home from cardiology standpoint. At discharge, recommend conversion of IV lasix to home PO Bumex 2mg BID. Continue Coreg 6.25mg PO BID and lisinopril 5mg daily. Follow up in our [place] office with Delphine Smith NP, on 12/23/2016 @ 1:30PM. Assessment and plan reviewed with pt at bedside. The patient has been seen in conjunction with Dr. Almonte who agrees with the assessment and plan of care. Subjective Date of service: 12/18/17 Principal diagnosis: HF Interval history: pt resting in bed, c/o cough. LifeVest in place. Family at bedside. Objective Last Vital Signs Temp 98.4 F 12/18/17 08:21 Pulse 10 L 12/18/17 10:52 Resp 20 12/18/17 08:21 BP 118/69 12/18/17 08:21 Pulse Ox 100 12/18/17 08:21 - Physical Examination General: No Apparent Distress HEENT: Positive: PERRL, Normocephaly, Mucus Membranes Moist Neck: Positive: neck supple, trachea midline Cardiac: Positive: Reg Rate and Rhythm, S1/S2 Lungs: Positive: clear to auscultation Neuro: Positive: Grossly Intact, Cranial Nerve 2-12 Intact Abdomen: Positive: Soft. Negative: Tender Skin: Positive: Clear. Negative: Rash, Wound Musculoskeletal: No Pain, Normal Range of Motion Extremities: Present: edema (trace BLE) - Labs and Meds CBC 12/18/17 Range/Units 05:51 WBC 5.9 (4.5-11.0) K/mm3 RBC 4.49 (3.65-5.03) M/mm3 Hgb 12.4 (10.1-14.3) gm/dl Hct 39.7 (30.3-42.9) % Plt Count 278 (140-440) K/mm3 Lymph # 2.1 (1.2-5.4) K/mm3 [place] # 0.8 (0.0-0.8) K/mm3 Eos # 0.2 (0.0-0.4) K/mm3 Baso # 0.1 (0.0-0.1) K/mm3 Comprehensive Metabolic Panel 12/18/17 Range/Units 05:51 Sodium 142 (137-145) mmol/L Potassium 3.6 (3.6-5.0) mmol/L Chloride 100.1 (98-107) mmol/L Carbon Dioxide 29 (22-30) mmol/L BUN 17 (7-17) mg/dL Creatinine 1.0 (0.7-1.2) mg/dL Glucose 89 (65-100) mg/dL Calcium 8.8 (8.4-10.2) mg/dL - Imaging and Cardiology EKG: report reviewed, image reviewed Echo: report reviewed (11/05/2017 showed EF 15-20%, mild MR, mild TR, mild AR, LV mod dilated, impaired relaxation, RV size and systolic function normal. ) Cardiac cath: report reviewed (08/2016 showed EF 35-40%, normal coronary anatomy. ) - Telemetry EKG Rhythm: Sinus Rhythm - EKG Sinus rhythms and dysrhythmias: sinus rhythm
[2017-12-18 12:51] VITALS: BP 102/66
--- NOTE | 2017-12-18 13:57 | Discharge Summary ---
Providers - Providers Date of Admission: 12/15/17 08:55 Date of discharge: 12/18/17 Attending physician: JOHAN BRAVO 12/15/17 08:54 Consult to Physician [CONS] Urgent Consulting Provider: CESAR YOUNGBLOOD Reason For Exam: chf exacerbation, med noncompliance Place consult to:: CARDIO Notified:: y Primary care physician: DOUGH MAKER Hospitalization Reason for admission: sob Condition: Stable Hospital course: The pt is a 42 YO female with a past medical history significant for chronic systolic heart failure, dilated NICMP, lupus, HLP, obesity, medication noncompliance who presented with c/o chest pain and progressively worsening SOB , orthopnea and PND for several days prior to admission. On exam, patient was noted to have reproducible chest wall pain with palpation. Echo done 11/05/2017 showed EF 15-20%, mild MR, mild TR, mild AR, LV mod dilated, impaired relaxation , RV size and systolic function normal. LHC 08/2016 showed EF 35-40%, normal coronary anatomy. The patient was seen by cardiology in consultation and had her Coreg increased and received IV diuresis. The patient also had discussions with cardiology with regards to life vest placement. The patient became euvolemic with appropriate therapy and was felt to receive maximal hospital benefit of discharge. Dedicated discharge time 35 minutes. Disposition: - TO HOME OR SELFCARE Time spent for discharge: 35 - Discharge Diagnoses (1) Costochondritis Status: Acute (2) CHF exacerbation Status: Acute (3) Chest wall pain Status: Acute (4) Lupus Status: Acute (5) Noncompliance with medication regimen Status: Acute Core Measure Documentation - Palliative Care Palliative Care/ Comfort Measures: Not Applicable - Core Measures Any of the following diagnoses?: none Exam - Constitutional Vitals: Temp Pulse Resp BP Pulse Ox 98.0 F 89 20 102/66 96 12/18/17 12:30 12/18/17 12:30 12/18/17 12:30 12/18/17 12:30 12/18/17 12:30 General appearance: Present: no acute distress, well-nourished - EENT Eyes: Present: PERRL ENT: hearing intact, clear oral mucosa - Neck Neck: Present: supple, normal ROM - Respiratory Respiratory effort: normal Respiratory: bilateral: CTA - Cardiovascular Heart Sounds: Present: S1 & S2. Absent: rub, click - Extremities Extremities: pulses symmetrical, No edema Peripheral Pulses: within normal limits - Abdominal General gastrointestinal: Present: soft, non-tender, non-distended, normal bowel sounds Female genitourinary: Present: normal - Integumentary Integumentary: Present: clear, warm, dry - Musculoskeletal Musculoskeletal: strength equal bilaterally, other (chest wall tenderness) - Psychiatric Psychiatric: appropriate mood/affect, intact judgment & insight - Neurologic Neurologic: CNII-XII intact, moves all extremities Plan Activity: no restrictions Weight Bearing Status: Full Weight Bearing Diet: low fat, low cholesterol, low salt Follow up with: PRIMARY CARE,MD [Primary Care Provider] - 7 Days SHELDON CÁRDENAS NP [Advanced Practice Nurse] - 7 Days Prescriptions: Aspirin 81 mg PO DAILY #30 Bumetanide 2 mg tab 2 mg PO BID #60 Carvedilol [Coreg] 6.25 mg PO BID #60 tablet Lisinopril [Zestril TAB] 5 mg PO QDAY #30 tablet
== END 2017-12-18 16:40 | disposition home or self-care (01) | DRG 291 ==
LOC: ED 03:20 → 4A 08:55
PROVIDERS: ADMIT Hospitalist; ATTEND Hospitalist
DX: I50.23 Acute on chronic systolic (congestive) heart failure (principal); J96.01 Acute respiratory failure with hypoxia; I42.0 Dilated cardiomyopathy; L93.0 Discoid lupus erythematosus; Z91.14 Patient's other noncompliance with medication regimen; E87.6 Hypokalemia; Z88.6 Allergy status to analgesic agent; Z90.710 Acquired absence of both cervix and uterus; Z98.51 Tubal ligation status; E66.9 Obesity, unspecified; Z68.34 Body mass index [BMI] 34.0-34.9, adult; M94.0 Chondrocostal junction syndrome [Tietze]
CPT/HCPCS: 36415; 71045; 71046; 80048; 80074; 83880; 84484; 85025; 93005; 93010; 96374; 96375; 96376; J1650; J1940; J2060; J2270; J2405

== ENCOUNTER 2019-04-05 14:14 | Emergency (ER) | payer OTHER ==
--- NOTE | 2019-04-05 14:22 | Event Note ---
ED Screening Note ED Screening Note: sharp cp thought anxiety took xanax got worse and tight pmh gerd anxiety rx prn xanax nexium This initial assessment/diagnostic orders/clinical plan/treatment(s) is/are subject to change based on patients health status, clinical progression and re- assessment by fellow clinical providers in the ED. Further treatment and workup at subsequent clinical providers discretion. Patient/guardian urged not to elope from the ED as their condition may be serious if not clinically assessed and managed. Initial orders include:
[2019-04-05 14:50] LABS: Basophils % (Auto) 0.5 % (0.0-1.8); Eosinophils # (Auto) 0.2 K/mm3 (0.0-0.4); Eosinophils % (Auto) 2.9 % (0.0-4.3); Hemoglobin 12.9 gm/dl (10.1-14.3); Lymphocytes # (Auto) 2.4 K/mm3 (1.2-5.4); Lymphocytes % (Auto) 36.2 % (13.4-35.0); Mean Corpuscular HGB Conc 33 % (30-34); Mean Corpuscular Volume 89 fl (79-97); Monocytes # (Auto) 0.4 K/mm3 (0.0-0.8); Monocytes % (Auto) 6.6 % (0.0-7.3); Platelet Count 276 K/mm3 (140-440); Red Blood Count 4.39 M/mm3 (3.65-5.03); Red Cell Distribution Width 14.3 % (13.2-15.2)
--- NOTE | 2019-04-05 15:06 | XRay Report ---
ROUTINE CHEST, TWO VIEWS: HISTORY: Dysrhythmia. A single-lead pacemaker device has been inserted since 12/18/17. Borderline to mild cardiomegaly is suspected. Normal pulmonary vascularity. Trace left pleural effusion is identified. Otherwise, the lungs are clear. The bony structures are intact. IMPRESSION: Borderline to mild cardiomegaly. Trace left pleural effusion.
[2019-04-05 15:13] LABS: Alanine Aminotransferase 9 units/L (7-56); Albumin 4.1 g/dL (3.9-5); BUN/Creatinine Ratio 14; Blood Urea Nitrogen 11 mg/dL (7-17); Calcium 9.6 mg/dL (8.4-10.2); Hemolysis Index 10
[2019-04-05 15:15] LABS: Bilirubin,Direct < 0.2 mg/dL (0-0.2)
[2019-04-05] MEDS ORDERED: K-DUR PO ONE (15:46)
--- NOTE | 2019-04-05 15:46 | Emergency Department Report ---
ED General Adult HPI - General Chief complaint: Arrhythmia/Palpitations Stated complaint: CHEST PAIN Time Seen by Provider: 04/05/19 14:21 Source: patient, RN notes reviewed, old records reviewed Mode of arrival: Ambulatory Limitations: No Limitations - History of Present Illness Initial comments: Primary care Dr.: Was Dr. Estrella Kumar, now currently does not have a primary care doctor. Cardiology: Dr. Kari Bassett Past medical history: Chronic systolic heart failure, dilated nonischemic cardiomyopathy, lupus, high cholesterol, obesity, medication noncompliance, reported [place] [employer] defibrillator, left heart cath in August 2016 showed ejection fraction 35-40%, with normal coronary anatomy. Patient has been ruled out for pulmonary embolus at this hospital in the past. This is a pleasant 43-year-old female who is not known to this provider previously. Patient reports she was in her usual state of health today, when she felt like her defibrillator fired, at approximately 1:20 PM. She had some pain associated with the activation, otherwise, had no preceding symptoms. Prior to the event, denies headache, neck pain, chest pain, abdominal pain, shortness of breath, urinary symptoms. Reports a distant history of hysterectomy, not taking any oral contraceptives, and she denies DVT, pulmonary embolus risk factors. Describes a nagging cough for the past few weeks, and indicates that her is being treated for "pneumonia." She endorses sporadic compliance with her medications, and reports being out of her lisinopril, 5 mg, and Bumex, 2 mg, twice daily for a few weeks to 2 months. She currently denies other complaints and pain, with the exception of anxiety. -: Sudden Consistency: now resolved Improves with: none Worsens with: none - Related Data Previous Rx's Medication Instructions Recorded Last Taken Type Aspirin 81 mg PO DAILY #30 12/18/17 Unknown Rx Carvedilol [Coreg] 6.25 mg PO BID #60 tablet 12/18/17 Unknown Rx Bumetanide 2 mg tab 2 mg PO BID #60 04/05/19 Unknown Rx Lisinopril [Zestril TAB] 5 mg PO QDAY #30 tablet 04/05/19 Unknown Rx Potassium Chloride [K-Dur] 20 meq PO QDAY #7 tablet 04/05/19 Unknown Rx Allergies Allergy/AdvReac Type Severity Reaction Status Date / Time codeine AdvReac Anaphylaxis Verified 12/15/17 08:49 ED Review of Systems ROS: Stated complaint: CHEST PAIN Other details as noted in HPI Constitutional: denies: fever Eyes: denies: eye discharge ENT: denies: epistaxis Respiratory: cough Cardiovascular: palpitations, other Gastrointestinal: nausea. denies: vomiting Genitourinary: denies: dysuria Musculoskeletal: denies: arthralgia, myalgia Skin: denies: lesions Neurological: denies: weakness Psychiatric: anxiety ED Past Medical Hx - Past Medical History Previous Medical History?: Yes Hx Congestive Heart Failure: Yes Hx Diabetes: No Hx Arthritis: Yes Hx Asthma: No Additional medical history: lupus - Surgical History Past Surgical History?: Yes Additional Surgical History: hysterectomy 2014. tubal ligation 1998 - Social History Smoking Status: Never Smoker - Medications Home Medications: Home Medications Medication Instructions Recorded Confirmed Last Taken Type Aspirin 81 mg PO DAILY #30 12/18/17 04/05/19 Unknown Rx Carvedilol [Coreg] 6.25 mg PO BID #60 tablet 12/18/17 04/05/19 Unknown Rx Bumetanide 2 mg tab 2 mg PO BID #60 04/05/19 Unknown Rx Lisinopril [Zestril TAB] 5 mg PO QDAY #30 tablet 04/05/19 Unknown Rx Potassium Chloride [K-Dur] 20 meq PO QDAY #7 tablet 04/05/19 Unknown Rx ED Physical Exam - General Limitations: No Limitations General appearance: alert, anxious, obese - Head Head exam: Present: atraumatic, normocephalic - Eye Eye exam: Present: normal appearance, EOMI - ENT ENT exam: Present: normal exam, normal orophraynx, mucous membranes moist, normal external ear exam - Neck Neck exam: Present: normal inspection, full ROM. Absent: tenderness, meningismus - Respiratory Respiratory exam: Present: normal lung sounds bilaterally. Absent: respiratory distress - Cardiovascular Cardiovascular Exam: Present: regular rate, normal rhythm, normal heart sounds. Absent: bradycardia, tachycardia, irregular rhythm, systolic murmur, diastolic murmur, rubs, gallop - GI/Abdominal GI/Abdominal exam: Present: soft. Absent: distended, tenderness, guarding, rebound, rigid, pulsatile mass - Extremities Exam Extremities exam: Present: normal inspection, full ROM, other (2+ pulses noted in the bilateral upper, lower extremities. Compartments soft. No long bony tenderness. The pelvis is stable.). Absent: pedal edema, joint swelling, calf tenderness - Back Exam Back exam: Present: normal inspection, full ROM. Absent: tenderness, CVA tenderness (L), paraspinal tenderness, vertebral tenderness - Neurological Exam Neurological exam: Present: alert, oriented X3, other (Extraocular movements intact. Tongue midline. No facial droop. Facial sensation intact to light touch in the V1, V2, V3 distribution bilaterally. 5 and 5 strength in 4 extremities.. Sensation is intact to light touch in 4 extremities.). Absent: motor sensory deficit - Psychiatric Psychiatric exam: Present: normal affect, normal mood - Skin Skin exam: Present: warm, dry, intact, normal color. Absent: rash ED Course Vital Signs 04/05/19 04/05/19 04/05/19 15:52 16:01 16:15 Temperature 98.3 F Pulse Rate 85 83 80 Respiratory 13 12 16 Rate Blood Pressure 134/62 142/82 Blood Pressure 150/76 [Left] O2 Sat by Pulse 98 99 Oximetry 04/05/19 04/05/19 04/05/19 16:30 16:45 17:01 Temperature Pulse Rate 83 Respiratory 17 Rate Blood Pressure 137/85 142/82 142/82 Blood Pressure [Left] O2 Sat by Pulse 99 99 97 Oximetry 04/05/19 04/05/19 17:08 18:11 Temperature 98.5 F Pulse Rate 85 Respiratory 16 16 Rate Blood Pressure Blood Pressure 133/72 [Left] O2 Sat by Pulse 99 99 Oximetry - Reevaluation(s) Reevaluation #1: 04/05/19 15:57 Differential diagnosis, including not limited to: Arrhythmia, rhonchi his, pleural effusion, electrolyte derangement Assessment and plan: 43-year-old female with ICD in situ, currently pain-free at this time, no pulmonary embolus or DVT risk factors, low risk by well's criteria, perc negative, low risk by heart score, low risk by SAYR score for major adverse cardiac event, with complaint of defibrillator activation. She is currently in normal sinus rhythm, and her EKG today is unchanged from prior EK G. Contacted cardiology farm labor contractor, Roddy Ventura, who recommended having device interrogated. Magnesium within normal limits, patient found to be mildly hypokalemic, we will replete potassium. Patient will be placed on a awake overnight monitor and observed. Awaiting for the [employer] patient financial representative to call back. 04/05/19 16:05 Reevaluation #2: 04/05/19 16:05 [place] [employer] patient financial representative has called back, their representatives and route, they anticipate arrival within an hour. Patient is updated. Reevaluation #3: 04/05/19 17:57 Patient playing on a cellular phone. Vital signs remained stable. Patient in no acute distress. Still awaiting patient financial representative for device interrogation. Reevaluation #4: 04/05/19 18:17 Device interrogation complete. Patient had single episode of ventricular fibrillation, shocked at 41 J, and is now back in normal sinus rhythm. Patient resting comfortably for hours without clinical decompensation. 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 Reevaluation #5: 04/05/19 18:54 Patient resting comfortably for hours, and in no acute distress. Covering cardiology, Dr. Zac Harrison, calls back. I have discussed the patient's history, physical, laboratory findings, prior cardiac risk medications, as well as the findings of the patient's device interrogation. We both agree the patient is medically suitable to be discharged to closely follow up with outpatient cardiology. We will refill the patient's Bumex, and lisinopril, and the patient is instructed to follow-up with her outpatient paint trimmer pipe bowls within the next 5 days. She verbalizes understanding, and she is agreeable to discharge ED Medical Decision Making - Lab Data Result diagrams: 04/05/19 14:41 04/05/19 14:41 Vital Signs 04/05/19 15:52 Temperature 98.3 F Pulse Rate 85 Respiratory 13 Rate Blood Pressure 150/76 [Left] O2 Sat by Pulse 98 Oximetry Lab Results 04/05/19 04/05/19 04/05/19 Range/Units 14:41 14:41 14:41 WBC 6.5 (4.5-11.0) K/mm3 RBC 4.39 (3.65-5.03) M/mm3 Hgb 12.9 (10.1-14.3) gm/dl Hct 39.0 (30.3-42.9) % MCV 89 (79-97) fl MCH 29 (28-32) pg MCHC 33 (30-34) % RDW 14.3 (13.2-15.2) % Plt Count 276 (140-440) K/mm3 Lymph % (Auto) 36.2 H (13.4-35.0) % [place] % (Auto) 6.6 (0.0-7.3) % Eos % (Auto) 2.9 (0.0-4.3) % Baso % (Auto) 0.5 (0.0-1.8) % Lymph # 2.4 (1.2-5.4) K/mm3 [place] # 0.4 (0.0-0.8) K/mm3 Eos # 0.2 (0.0-0.4) K/mm3 Baso # 0.0 (0.0-0.1) K/mm3 Seg Neutrophils % 53.8 (40.0-70.0) % Seg Neutrophils # 3.5 (1.8-7.7) K/mm3 Sodium 141 (137-145) mmol/L Potassium 3.4 L (3.6-5.0) mmol/L Chloride 102.2 (98-107) mmol/L Carbon Dioxide 23 (22-30) mmol/L Anion Gap 19 mmol/L BUN 11 (7-17) mg/dL Creatinine 0.8 (0.7-1.2) mg/dL Estimated GFR > 60 ml/min BUN/Creatinine Ratio 14 % Glucose 107 H (65-100) mg/dL Calcium 9.6 (8.4-10.2) mg/dL Magnesium 1.80 (1.7-2.3) mg/dL Total Bilirubin 0.40 (0.1-1.2) mg/dL Direct Bilirubin < 0.2 (0-0.2) mg/dL Indirect Bilirubin 0.2 mg/dL AST 11 (5-40) units/L ALT 9 (7-56) units/L Alkaline Phosphatase 48 (35-129) units/L Troponin T < 0.010 (0.00-0.029) ng/mL NT-Pro-B Natriuret Pep 426.8 (0-450) pg/mL Total Protein 7.5 (6.3-8.2) g/dL Albumin 4.1 (3.9-5) g/dL Albumin/Globulin Ratio 1.2 % - EKG Data -: EKG Interpreted by Id EKG shows normal: sinus rhythm Rate: normal - EKG Data When compared to previous EKG there are: no significant change 04/05/19 15:56 This is a normal sinus rhythm, 74 bpm, left axis deviation, left anterior fascicular block, high left ventricular voltage, QTC prolonged, not currently having chest pain, this is an abnormal EKG, this EKG is not consistent with ST elevation myocardial infarction, it appears to be unchanged from prior EKG from December 2017. - Radiology Data Radiology results: report reviewed, image reviewed Print Report Referring Physician: DAVIDA WHITESIDE Patient Name: RADHA ZALDIVAR Date of : 1975 Sex: Female Report Date: 2019-04-05 Report Status: Finalized Findings [facility] [address] [place] [address] XRay Report Signed Patient: RADHA ZALDIVAR MR#: [id number] : 1975 Acct:[id number] Age/Sex: 43 / F ADM Date: 04/05/19 Loc: ED Attending Dr: Ordering Physician: DAVIDA WHITESIDE Date of Service: 04/05/19 Procedure(s): XR chest routine 2V Accession Number(s): [id number] cc: DAVIDA WHITESIDE Fluoro Time In Minutes: ROUTINE CHEST, TWO VIEWS: HISTORY: Dysrhythmia. A single-lead pacemaker device has been inserted since 12/18/17. Borderline to mild cardiomegaly is suspected. Normal pulmonary vascularity. Trace left pleural effusion is identified. Otherwise, the lungs are clear. The bony structures are intact. IMPRESSION: Borderline to mild cardiomegaly. Trace left pleural effusion. Transcribed By: TTR Dictated By: DEANGELO JAEGER JR, MD Electronically Authenticated By: DEANGELO JAEGER JR, MD Signed Date/Time: 04/05/19 1501 Critical care attestation.: If time is entered above; I have spent that time in minutes in the direct care of this critically ill patient, excluding procedure time. ED Disposition Clinical Impression: ICD (implantable cardioverter-defibrillator) discharge, Hypokalemia Disposition: -01 TO HOME OR SELFCARE Is pt being admited?: No Does the pt Need Aspirin: No Condition: Stable Additional Instructions: Take medications as directed. Follow up with her paint trimmer pipe bowls within the next 5 days. Avoid consumption of stimulants, such as caffeine, and energy drinks. Physical activities as tolerated. Return to the emergency room right away with new, worsening or different symptoms, or symptoms not present on the initial emergency room evaluation. Prescriptions: Bumetanide 2 mg tab 2 mg PO BID #60 Lisinopril [Zestril TAB] 5 mg PO QDAY #30 tablet Referrals: JAIRO FRANCO MD [Staff Physician] - 3-5 Days
[2019-04-05 19:00] VITALS: BP 129/71
== END 2019-04-05 19:04 | disposition home or self-care (01) ==
LOC: ED 14:14
DX: E87.6 Hypokalemia (principal); Z88.6 Allergy status to analgesic agent
CPT/HCPCS: 36415; 71046; 80048; 80076; 83735; 83880; 84484; 85025; 93005; 93010